=== PATIENT | male | born 1940 | race African-American/Black ===

== ENCOUNTER 2019-09-09 16:10 | Inpatient (IN) | payer MEDICARE ==
--- NOTE | 2019-09-09 18:15 | NUR ---
RECEIVED FROM [facility]. VIA WHEELCHAIR PER VAN DRIVERS. INCREASED AGGRESSION WITH STAFF AND RESIDENTS. PATIENT IS ABLE TO TRANSFER WITH ASSISTANCE. NO KNOWN DRUG ALLERGIES.
[2019-09-09] MEDS ORDERED: PROLIXIN DEC25 MG/ML IM (19:43)
[2019-09-09] MEDS ORDERED: PLAVIX75 MG PO (19:54)
[2019-09-09] MEDS ORDERED: MILK OF MAGNESI30 ML PO (19:54)
[2019-09-09] MEDS ORDERED: VASOTEC10 MG PO (19:55)
[2019-09-09] MEDS ORDERED: ZOCOR40 MG PO (19:56)
[2019-09-09] MEDS ORDERED: SEROQUEL25 MG PO (19:57)
[2019-09-09] MEDS ORDERED: SEROQUEL50 MG PO (19:57)
[2019-09-09] MEDS ORDERED: ELIXOPHYLL80 MG/15 M PO (19:59)
[2019-09-09] MEDS ORDERED: ACETAMINOPHEN500 M1 PO (20:02)
[2019-09-09 20:11] VITALS: BP 103/57
--- NOTE | 2019-09-09 20:30 | NUR ---
NEW ADMIT TO DOCTOR MAYER ON [facility] FROM [facility] FOR INCREASED AGGRESSION. UPON ARRIVAL TO [facility], PATIENT IS CALM AND COOPERATIVE WITH ADMISSION ASSESSMENTS. VERBAL CONSENTS FOR TREATMENT RECEIVED FROM PATIENT. CODE WORD IS KAMILLA. PATIENT IS A FULL CODE. PATIENT ORIENTED TO ROOM, UNIT, AND CALL GARCIA SYSTEM.
[2019-09-09 22:53] VITALS: BP 103/57
[2019-09-10 07:21] LABS: ALBUMIN 3.1 g/dL (3.4-5.0); ANION GAP 13.6 mmol/L (8-16); BILIRUBIN - TOTAL 0.2 mg/dL (0.2-1.3); CALCIUM 8.2 mg/dL (8.5-10.1); CHOL - HDL RATIO 2.9 ratio (2.3-4.9); CREATININE - SERUM 1.3 mg/dL (0.6-1.3); LDL-HDL RATIO 1.7 ratio (1.5-3.5); POTASSIUM - SERUM 4.6 mmol/L (3.5-5.1); PROTEIN - SERUM 6.6 g/dL (6.4-8.2); THYROID STIMULATING HORMONE 3.16 uIU/mL (0.36-3.74)
[2019-09-10 07:24] LABS: BASOPHILS 0.5 % (0-2); EOSINOPHILS 4.7 % (0-7); HEMATOCRIT 39.6 % (42.0-54.0); HEMOGLOBIN 12.3 g/dL (13.5-17.5); IMMATURE GRANULOCYTES 0.3 % (0-5); LYMPHOCYTES 34.4 % (15-50); MCH 26.1 pg (26.0-34.0); MCHC 31.1 g/dL (31.0-37.0); MCV 84.1 fL (80.0-100.0); MONOCYTES 9.3 % (2-11); NEUTROPHILS 50.8 % (40-80); PLATELET COUNT 124 10x3/uL (130-400); RBC 4.71 10x6/uL (4.20-6.10); RDW 14.8 % (11.5-14.5); WBC 6.5 10x3/uL (4.8-10.8)
[2019-09-10 11:03] VITALS: Wt 83.8 kg
--- NOTE | 2019-09-10 13:50 | NUR ---
PATIENT QUIET, CALM, COOPERATIVE, FOLLOWS DIRECTIONS, CONFUSED, NO AGGRESSION NOTED. FEEDS SELF WITHOUT DIFFICULTY. CONT POC DIRECTED.
[2019-09-10 14:54] VITALS: BP 112/58
[2019-09-10 20:12] VITALS: BP 115/62
--- NOTE | 2019-09-10 23:31 | NUR ---
B.) PT IS ALERT AND ORIENTED TO SELF ONLY. HIS SPEECH IN VERY LOW AND PRESSURED. HE IS ABLE TO MAKE HIS NEEDS KNOWN. HE IS CONTINENT AT TIMES. HE IS RECEIVED IN THE DAY ROOM IN A WHEELCHAIR. HE IS PLEASANT WITH STAFF. I.) PROVIDED PM MEDICATIONS. R.) COMPLIANT WITH ALL MEDICATIONS. P.) CONTINUE PLAN OF CARE
[2019-09-11 08:11] LABS: RAPID PLASMA REAGIN Non Reactive (Non Reactive)
[2019-09-11 09:49] VITALS: BP 146/53
--- NOTE | 2019-09-11 13:25 | NUR ---
B) The patient is awake and pleasant, he became sleepy after breakfast and he has not said much. He has not shown any aggression. He is a two person lift. PT came to assess him and the patient was not able to stand at this time. He is in a w/c and needs assist. I) Provide prescribed meds. R) The patient is compliant with meds. P) Continue POC.
--- NOTE | 2019-09-11 15:56 | PSY ---
PATIENT NAME:ALFREDO RIVAS MEDICAL RECORD: [id number] : 38 LOCATION:SRIRAM [facility] ADMISSION DATE: 09/09/19 ACCOUNT: [id number] PSYCHIATRIC EVALUATION DATE OF EVALUATION: 09/10/19 IDENTIFYING DATA: The patient is 78 years old and he is admitted to the hospital on a voluntary basis. CHIEF COMPLAINT: Aggression. HISTORY OF PRESENT ILLNESS: The patient is referred to us by a fci in [place]. He apparently was aggressive with staff and residents there, although I do not have details regarding his exact behaviors. He is clearly very impaired and does have a history of dementia and is not a good historian. He denies that he wants to hurt himself or others as well as psychotic symptoms. He is not providing useful history. PAST MEDICAL HISTORY: Significant for stroke, hypertension, and coronary artery disease. PAST PSYCHIATRIC HISTORY: Significant for an established diagnosis of dementia along with a history of depression and anxiety. He also has some history of suicidal thoughts. FAMILY HISTORY: Unknown. CURRENT MEDICATIONS: Include Prolixin decanoate, milk of magnesia, Plavix, Vasotec, Zocor, Seroquel, and theophylline. SOCIAL HISTORY: The patient is a single by his report. He says he has children, but does not know how many, he says that somewhere between the 3 and 8. All of them had been with different women according to him, but he is not a very good historian. She drinks and says he likes to drink, but is unable to tell me how much. He says he formally smoked cigarettes and he says he has never abused drugs. MENTAL STATUS EXAMINATION: The patient is awake, alert and oriented to person, place and somewhat to time and situation. His mood is anxious. His affect is constricted. Thought processes are circumstantial. Memory, concentration, and abstraction abilities are moderately impaired and he denies any intent to harm himself or others as well as active psychotic symptoms. ASSETS: Supportive family members. LIABILITIES: Limited insight. DIAGNOSTIC IMPRESSION: AXIS I: Major vascular dementia. AXIS II: Deferred. AXIS III: Hypertension, status post stroke, coronary artery disease, hyperlipidemia. AXIS IV: Moderate. AXIS V: Global assessment of functioning is 30. PLAN: At this time, the patient is admitted to the hospital secondary to aggressive behavior at the fci. He will be monitored for clinical changes associated with the medication management and he will be referred back to long-term care. TRANSINT:[id number] Voice Confirmation ID: [id number] DOCUMENT ID: [id number] CHRISTOPHER MAYER MD at 1556 CC: [id number] DICTATION DATE: 09/10/19 1602 SUPERVISOR BUILDING MAINTENANCE: 09/10/19 1623 ADM IN [place] [address] [place] [address]
--- NOTE | 2019-09-11 20:42 | NUR ---
RECEIVED IN PATIENT ROOM. RESTING IN BED WITH EYES OPEN. CALM AND COOPERATIVE WITH CARE AND ASSESSMENT. NO AGGRESSIVE BEHAVIORS. REDIRECT AND REORIENT NEEDED. RESTING IN BED WITH EYES CLOSED AT THIS TIME. CONTINUE PLAN OF CARE.
[2019-09-11 21:58] VITALS: BP 114/49
--- NOTE | 2019-09-12 08:50 | NUR ---
PT SITTING AND EATING BREAKFAST. NO ACUTE DISTRESS NOTED. PT IS CONFUSED ALERT TO SELF ONLY. NO AGGRESSION NOTED FROM PREVIOUS SHIFT. POOR INSIGHT. PT IS COMPLIANT WITH MEDS, VITALS AND ASSESSMENT. PT REQUIRES ASSISTANCE WITH ADLS AND TRANSFERS. CHAIR ALARM IN PLACE AND ACTIVE. WILL CONT PLAN OF CARE.
[2019-09-12 09:33] VITALS: BP 116/96
--- NOTE | 2019-09-12 13:14 | PN ---
PATIENT:ALFREDO RIVAS MEDICAL RECORD: [id number] LOCATION:SRIRAM Gaines ADMISSION DATE: 09/09/19 PROGRESS NOTE DATE OF SERVICE: 09/11/2019 SUBJECTIVE: The patient's case was discussed with staff. He has no new complaint. OBJECTIVE: The patient looks slightly sedated. He does have a history of alcoholism and was somewhat agitated yesterday. I am going to go ahead and stop the Klonopin and the Seroquel today and we will reassess the situation tomorrow. TRANSINT:[id number] Voice Confirmation ID: [id number] DOCUMENT ID: [id number] CHRISTOPHER MAYER MD at 1314 CC: [id number] DICTATION DATE: 09/11/19 180 DYE COLORIST FORMULATOR: 09/11/19 1846 ADM IN [facility] [address] [place] [address]
[2019-09-12 20:00] VITALS: BP 132/54
--- NOTE | 2019-09-12 22:09 | NUR ---
PATIENT HAS A FLAT AFFECT, DOES NOT INTERACT MUCH WITH OTHERS, CONFUSED, COMPLIANT WITH MEDS, NO ADVERSE AFFECT. WILL FOLLOW POC
--- NOTE | 2019-09-13 08:00 | NUR ---
PT IS AWAKE AND ALERT TO PERSON ONLY. PT HAS FLAT AFFECT. CALM AND COOPERATIVE WITH ASSESSMENT. PRESCRIBED MEDS PROVIDED. MED COMPLIANT. PT IS VERY CONFUSED. PT HAS NO INSIGHT INTO HIS SITUATION. REDIRECT AND REORIENT NEEDED. FALL PRECAUTIONS IN PLACE. NO AGGRESSION NOTED. WILL CPOC.
[2019-09-13 11:03] VITALS: BP 128/60
--- NOTE | 2019-09-13 11:08 | PN ---
PATIENT:ALFREDO RIVAS MEDICAL RECORD: [id number] LOCATION:SRIRAM Gaines ADMISSION DATE: 09/09/19 PROGRESS NOTE DATE OF SERVICE: 09/12/2019 SUBJECTIVE: The patient's case was discussed with staff. He has no new complaint. OBJECTIVE: The patient is awake and interactive. He has not been disruptive in any significant way. ASSESSMENT: Vascular dementia. PLAN: The patient is going to be started on Aricept at a dose of 5 mg at bedtime. His long-term prognosis is guarded. I anticipate that he may need additional medications, particularly a mood stabilizer, but at this point, he has not shown the aggressive behavior that precipitated this admission. TRANSINT:[id number] Voice Confirmation ID: [id number] DOCUMENT ID: [id number] CHRISTOPHER MAYER MD at 1108 CC: [id number] DICTATION DATE: 09/12/19 1355 HAND REAMER: 09/12/19 1532 ADM IN [place] [id number] [place] [address]
[2019-09-13 18:59] VITALS: BP 159/65
--- NOTE | 2019-09-13 21:57 | NUR ---
RECEIVED IN DAYROOM. SITTING IN A RECLINING CHAIR. CALM AND COOPERATIVE WITH CARE AND ASSESSMENT. NO SIGNS OF AGGRESSION. REDIRECT AND REORIENT NEEDED. RESTING IN BED WITH EYES CLOSED AT THIS TIME. CONTINUE PLAN OF CARE
--- NOTE | 2019-09-14 08:00 | NUR ---
PT IN DINING ROOM AWAITING ON BREAKFAST. PT IS AWAKE AND ALERT TO PERSON ONLY. CALM AND COOPERATIVE WITH ASSESSMENT. PRESCRIBED MEDS PROVIDED. MED COMPLIANT. NO BEHAVIORS NOTED AT THIS TIME. REDIRECT AND REORIENT NEEDED. FALL PRECAUTIONS IN PLACE. WILL CPOC.
[2019-09-14 09:13] VITALS: BP 153/51
[2019-09-14 11:01] LABS: ANION GAP 11.9 mmol/L (8-16); CALCIUM 8.9 mg/dL (8.5-10.1); CARBON DIOXIDE 27.6 mmol/L (21.0-32.0); CREATININE - SERUM 1.1 mg/dL (0.6-1.3); POTASSIUM - SERUM 4.5 mmol/L (3.5-5.1)
--- NOTE | 2019-09-14 15:18 | NUR ---
Nutrition Follow-up: Diet: Regular PO intake: ~85% average x last 9 meals Last BM = 09/12/19. Wt: 186# (09/13/19); Admit wt: 185# (09/09/19) Labs, meds, and nursing skin assessment reviewed Continue current nutrition regimen. RD Following.
--- NOTE | 2019-09-14 15:38 | PN ---
PATIENT:ALFREDO RIVAS MEDICAL RECORD: [id number] LOCATION:SRIRAM Gaines ADMISSION DATE: 09/09/19 PROGRESS NOTE DATE OF SERVICE: 09/13/2019 SUBJECTIVE: The patient's case was discussed with staff. He has no new complaint. OBJECTIVE: The patient is participating in treatment reasonably well. I started him on a low dose of Aricept and he has tolerated the initial dose of this well. He has not been aggressive here as he was at the [place] [facility], but I do not think that is related to a change in his condition, but rather to the fact that he is in a small highly structured environment where staff are always with him. They are constantly redirecting him and assisting him. ASSESSMENT: Dementia. PLAN: Current medicines and therapies have been reviewed and will be maintained. Long-term prognosis is guarded. TRANSINT:[id number] Voice Confirmation ID: [id number] DOCUMENT ID: [id number] CHRISTOPHER MAYER MD at 1538 CC: [id number] DICTATION DATE: 09/13/19 1137 INFORMATICS MANAGER: 09/13/19 1220 ADM IN [facility] [address] [place] [address]
[2019-09-14 20:00] VITALS: BP 158/53
--- NOTE | 2019-09-14 21:34 | NUR ---
RECEIVED IN DAYROOM. SITTING AT THE TABLE IN A RECLINING CHAIR. CALM AND COOPERATIVE WITH CARE AND ASSESSMENT. NO SIGNS OF AGGRESSION. REDIRECT AND REORIENT NEEDED. RESTING IN BED WITH EYES CLOSED. CONTINUE PLAN OF CARE
[2019-09-15 05:42] LABS: APPEARANCE CLEAR (CLEAR); BILIRUBIN NEGATIVE (NEGATIVE); COLOR YELLOW (YELLOW); GLUCOSE NEGATIVE (NEGATIVE); KETONE NEGATIVE (NEGATIVE); NITRITE NEGATIVE (NEGATIVE); PROTEIN NEGATIVE (NEGATIVE); SPECIFIC GRAVITY 1.015 (1.005-1.020); UROBILINOGEN NORMAL (NORMAL)
[2019-09-15 05:43] LABS: BACTERIA FEW /hpf (NEGATIVE); EPITHELIAL CELLS 0-5 /hpf (0-5); WHITE CELLS - URINE 0-5 /hpf (NEGATIVE)
--- NOTE | 2019-09-15 08:00 | NUR ---
REC'D PT SITING IN W/C BY NURSES STATION. CALM AND COOPERATIVE WITH ASSESSMENT. MED COMPLIANT. NO BEHAVIORS NOTED AT THIS TIME. PRESCRIBED MEDS PROVIDED ORDERED. MED COMPLIANT. REDIRECT AND REORIENT NEEDED. FALL PRECAUTIONS IN PLACE. WILL CPOC.
[2019-09-15 08:58] VITALS: BP 148/60
--- NOTE | 2019-09-15 15:36 | PN ---
PATIENT:ALFREDO RIVAS MEDICAL RECORD: [id number] LOCATION:SRIRAM Gaines ADMISSION DATE: 09/09/19 PROGRESS NOTE DATE OF SERVICE: 09/14/2019 SUBJECTIVE: The patient's case was discussed with staff. He has no new complaint. OBJECTIVE: The patient is sleeping and eating reasonably well. He has not been aggressive. ASSESSMENT: Vascular dementia. PLAN: Supportive and educational interventions were made. Long-term prognosis is guarded. TRANSINT:[id number] Voice Confirmation ID: [id number] DOCUMENT ID: [id number] CHRISTOPHER MAYER MD at 1536 CC: [id number] DICTATION DATE: 09/14/19 1633 WELL FLOW OPERATOR: 09/14/19 1637 ADM IN [place] [address] [place] [address]
[2019-09-15 22:08] VITALS: BP 142/63
--- NOTE | 2019-09-15 23:24 | NUR ---
RECEIVED IN BEDROOM. RESTING IN BED WITH EYES CLOSED. CALM AND COOPERATIVE WITH CARE AND ASSESSMENT. NO SIGNS OF AGGRESSION. REDIRECT AND REORIENT NEEDED. RESTING IN BED WITH EYES CLOSED AT THIS TIME. CONTINUE PLAN OF CARE
[2019-09-16 08:48] VITALS: BP 133/50
--- NOTE | 2019-09-16 10:00 | NUR ---
PATIENT SITTING IN WHEELCHAIR. CALM AND COOPERATIVE WITH ASSESSMENT AND CARE. NO AGGRESSION NOTED. REDIRECT AND REORIENT NEEDED. WILL CONTINUE POC.
--- NOTE | 2019-09-16 12:43 | PN ---
PATIENT:ALFREDO RIVAS MEDICAL RECORD: [id number] LOCATION:SRIRAM Gaines ADMISSION DATE: 09/09/19 PROGRESS NOTE DATE OF SERVICE: 09/15/2019 SUBJECTIVE: The patient's case was discussed with staff. He has no new complaint. OBJECTIVE: The patient is eating and drinking well. He has not been seriously disruptive in any significant way since being admitted. He has almost no insight about his situation. I do not think the underlying condition that precipitated the admission has really changed. It is just that he is much more highly structured and supervised environment. ASSESSMENT: Dementia. PLAN: I am going to start the patient on Zoloft to assist with his depressed mood. He will be monitored for clinical changes associated with its use. TRANSINT:[id number] Voice Confirmation ID: [id number] DOCUMENT ID: [id number] CHRISTOPHER MAYER MD at 1243 CC: [id number] DICTATION DATE: 09/15/19 1548 SENIOR QUALITY ENGINEER: 09/15/19 1743 ADM IN [place] [address] [place] [id number]
--- NOTE | 2019-09-16 20:41 | NUR ---
PATIENT VERY CONFUSED, FLAT AFFECT, RELIES ON STAFF FOR ALL ADL'S. COMPLIANT WITH MEDS, NO ADVERSE REACATION NOTED. WILL FOLLOW POC
[2019-09-16 22:00] VITALS: BP 106/61
[2019-09-17 09:02] VITALS: BP 151/56
--- NOTE | 2019-09-17 10:26 | NUR ---
NUTRITION F/U PUREED DIET WITH THIN LIQUIDS. REQUIRES FEEDING ASSIST. 100% INTAKE RECENT MEALS, STABLE WT. RECENT BM RECORDED. RD FOLLOWING
--- NOTE | 2019-09-17 12:29 | NUR ---
The patient is awake and he is more alert, he is walking with PT today and he is eating a little, but he does not like the pureed diet. He is calm and has not shown any aggression today. He can self propel in his w/c, but he takes some time. I) Provide prescribed meds. Encourage groups and activities. R) The patient is compliant with meds and he does try to interact with staff with prompting. P) Continue POC.
--- NOTE | 2019-09-17 14:26 | PN ---
PATIENT:ALFREDO RIVAS MEDICAL RECORD: [id number] LOCATION:SRIRAM Gaines ADMISSION DATE: 09/09/19 PROGRESS NOTE DATE OF SERVICE: 09/16/2019 SUBJECTIVE: The patient's case was discussed with staff. He has no new complaint. OBJECTIVE: The patient denies intent to harm himself or others. He is severely impaired cognitively. He has not been aggressive today. ASSESSMENT: Vascular dementia. PLAN: Current medicines have been reviewed and will be maintained. Long-term prognosis is guarded. TRANSINT:[id number] Voice Confirmation ID: [id number] DOCUMENT ID: [id number] CHRISTOPHER MAYER MD at 1426 CC: [id number] DICTATION DATE: 09/16/19 162 MEDIA MARKETING COORDINATOR: 09/16/19 2143 ADM IN [facility] [address] [place] [address]
[2019-09-17 21:32] VITALS: BP 132/62
[2019-09-18 09:47] VITALS: BP 175/70
--- NOTE | 2019-09-18 10:05 | NUR ---
B) The patient is awake and alert, he has poor insight into his situation he has not shown any aggression today. He did a swallow evaluation this am and he is pleasant. He is sitting in a w/c and he can self propel, he can tyransfer and ambulate with assist. I) Provide prescribed meds. R) The patient is compliant with meds and unit milieu. P) Continue POC.
--- NOTE | 2019-09-18 14:37 | PN ---
PATIENT:ALFREDO RIVAS MEDICAL RECORD: [id number] LOCATION:SRIRAM Gaines ADMISSION DATE: 09/09/19 PROGRESS NOTE DATE OF SERVICE: 09/17/2019 SUBJECTIVE: The patient's case was discussed with staff. He has no new complaint. OBJECTIVE: The patient is in good behavioral control with limited insight about his condition. He tolerates his medicines well. ASSESSMENT: Vascular dementia. PLAN: Supportive and educational interventions were made. Long-term prognosis is guarded. TRANSINT:[id number] Voice Confirmation ID: [id number] DOCUMENT ID: [id number] CHRISTOPHER MAYER MD at 1437 CC: [id number] DICTATION DATE: 09/17/19 1537 STRADDLE BUG DRIVER: 09/17/19 1756 ADM IN [place] [id number] [place] [id number]
--- NOTE | 2019-09-18 17:46 | NUR ---
PT IS ON PUREED DIET AND THIN LIQUIDS. PT AT TIMES DOES COUGH WHEN EATING. NO DISTRESS NOTED.
--- NOTE | 2019-09-18 21:23 | NUR ---
B.) PT IS ALERT AND ORIENTED TO SELF ONLY. HE IS VERY SOFT SPOKEN AND IS OFTEN QUIET. HE IS RECEIVED IN HIS WHEELCHAIR AND IS PLEASANT WITH STAFF. I.) PROVIDE PM MEDICATIONS. REDIRECT NEEDED. R.) COMPLIANT WITH ALL MEDICATIONS. EASY TO REDIRECT. P.) CONTINUE PLAN OF CARE
[2019-09-19 02:34] VITALS: BP 150/57
[2019-09-19 09:03] VITALS: BP 141/57
--- NOTE | 2019-09-19 12:38 | PN ---
PATIENT:ALFREDO RIVAS MEDICAL RECORD: [id number] LOCATION:SRIRAM Gaines ADMISSION DATE: 09/09/19 PROGRESS NOTE DATE OF SERVICE: 09/18/2019 SUBJECTIVE: The patient's case was discussed with staff. He has no new complaint. OBJECTIVE: The patient is partially oriented, but severely impaired cognitively. He has almost no short term memory. He has a depressed mood, but denies being depressed and also denies wanting to hurt himself. ASSESSMENT: Dementia. PLAN: The patient will be maintained on current medicines with the exception of the Zoloft, which I am going to increase to 50 mg daily. I anticipate that he can reasonably be transitioned out of the hospital soon if this level of improvement continues. TRANSINT:[id number] Voice Confirmation ID: [id number] DOCUMENT ID: [id number] CHRISTOPHER MAYER MD at 1238 CC: [id number] DICTATION DATE: 09/18/19 1525 DROP HAMMER PILE DRIVER OPERATOR: 09/18/19 1623 ADM IN [place] [address] [place] [address]
--- NOTE | 2019-09-19 13:13 | NUR ---
The patient is awake and alert, he is pleasant, he is quiet. He is calm, he has not shown any aggression today. He sits in his w/c. Provide prescribed meds. The patient is compliant with meds. Continue POC.
[2019-09-19 20:10] VITALS: BP 121/57
--- NOTE | 2019-09-19 22:03 | NUR ---
B.) PT IS ALERT AND ORIENTED TO SELF ONLY. HE HAS POOR INSIGHT INTO HIS SITUATION. HE IS QUIET AND WITHDRAWN. HE KEPT HIS HANDS OVER HIS EARS IN THE DAYROOM TONITE. I.) PROVIDED PM MEDICATIONS. REDIRECT NEEDED R.) COMPLIANT WITH ALL MEDICATIONS. EASY TO REDIRECT AT TIMES. P.) WILL CONTINUE TO MONITOR.
[2019-09-20 08:00] VITALS: BP 159/54
--- NOTE | 2019-09-20 10:00 | NUR ---
RECEIVED PT IN DINING ROOM FOR B'FAST, ALERT, CALM, COOPERATIVE. NO BEHAVIORAL ISSUES NOTED. MEDS ADMIN PER ORDERS WITH COMPLETE MED COMPLIANCE NOTED. CONT POC DIRECTED.
--- NOTE | 2019-09-20 11:48 | PN ---
PATIENT:ALFREDO RIVAS MEDICAL RECORD: [id number] LOCATION:SRIRAM Gaines ADMISSION DATE: 09/09/19 PROGRESS NOTE DATE OF SERVICE: 09/19/2019 SUBJECTIVE: The patient's case was discussed with staff. He has no new complaint. OBJECTIVE: The patient is in good behavioral control with poor insight about his condition. He has not been aggressive in any significant way. His confusion is relatively unchanged. ASSESSMENT: Vascular dementia. PLAN: I anticipate the patient can be transitioned out of the hospital soon if this level of improvement continues. TRANSINT:[id number] Voice Confirmation ID: [id number] DOCUMENT ID: [id number] CHRISTOPHER MAYER MD at 1148 CC: [id number] DICTATION DATE: 09/19/19 1339 ENTRY PROCESSOR: 09/19/19 1429 ADM IN [place] [id number] [place] [address]
[2019-09-20 20:00] VITALS: BP 113/65
--- NOTE | 2019-09-21 01:34 | NUR ---
B.) PT IS ALERT AND ORIENTED TO SELF ONLY. HE IS VERY SOFT SPOKEN. HE IS WITHDRAWN FROM PEERS. I.) REORIENT NEEDED. PROVIDED PM MEDICATIONS. ASSIST WITH ADL'S. R.) EASY TO REORIENT. COMPLIANT WITH ALL MEDICATIONS. TOLERATED ADL'S WELL. P.) WILL CONTINUE TO MONITOR.
[2019-09-21 10:47] VITALS: BP 111/51
--- NOTE | 2019-09-21 17:47 | NUR ---
PATIENT ALERT, CALM, CONFUSED, COOPERATIVE. NO AGGRESSION. ASSISTS WITH TRANSFERS, FEEDS SELF AFTER SETUP. MEDS ADMIN PER ORDERS WITH COMPLETE MED COMPLIANCE NOTED. CONT POC DIRECTED.
[2019-09-21] MEDS ORDERED: DONEPEZIL HCL5 MG PO (20:53)
[2019-09-21] MEDS ORDERED: ZOLOFT50 MG PO (20:54)
[2019-09-21] MEDS ORDERED: VITAMIN D5000 UNIT PO (20:54)
[2019-09-21] MEDS ORDERED: FOLIC ACID1 MG PO (20:54)
[2019-09-22 00:03] VITALS: BP 110/60
[2019-09-22 08:24] VITALS: BP 170/61
--- NOTE | 2019-09-22 13:31 | NUR ---
PT IS AWAKE, ALERT, AND COOPERATIVE. ASSESSMENT COMPLETED. MED COMPLIANT. FEEDS SELF AFTER SETUP. NO AGGRESSION NOTED. WILL CPOC.
--- NOTE | 2019-09-22 15:36 | PN ---
PATIENT:ALFREDO RIVAS MEDICAL RECORD: [id number] LOCATION:SRIRAM Gaines ADMISSION DATE: 09/09/19 PROGRESS NOTE DATE OF SERVICE: 09/21/2019 SUBJECTIVE: The patient's case was discussed with staff. He has no new complaint. OBJECTIVE: The patient is in good behavioral control. He has very poor insight about his situation and he has not been aggressive. ASSESSMENT: Vascular dementia. PLAN: The patient will be transitioned out of the hospital tomorrow. His long-term prognosis is guarded. TRANSINT:[id number] Voice Confirmation ID: [id number] DOCUMENT ID: [id number] CHRISTOPHER MAYER MD at 1536 CC: [id number] DICTATION DATE: 09/21/192051 SLAT TWISTER: 09/21/192104 ADM IN [facility] [address] [place] [address]
--- NOTE | 2019-09-23 13:45 | PN ---
PATIENT:ALFREDO RIVAS MEDICAL RECORD: [id number] LOCATION:SRIRAM Gaines ADMISSION DATE: 09/09/19 PROGRESS NOTE DATE OF SERVICE: 09/22/2019 SUBJECTIVE: The patient's case was discussed with staff. He has no new complaint. OBJECTIVE: The patient is confused, but in good behavioral control. ASSESSMENT: Vascular dementia. PLAN: The patient will be transitioned out of the hospital today. His long-term prognosis is guarded. TRANSINT:[id number] Voice Confirmation ID: [id number] DOCUMENT ID: [id number] CHRISTOPHER MAYER MD at 1345 CC: [id number] DICTATION DATE: 09/22/191928 SAUSAGE CANNER: 09/22/192124 DIS IN 09/22/19 [place] [address] [place] [address]
--- NOTE | 2019-10-03 12:38 | DS ---
PATIENT:ALFREDO RIVAS :38 MEDICAL RECORD: [id number] DISCHARGE SUMMARY ADMISSION DATE: 09/09/19 DISCHARGE DATE: 09/22/19 IDENTIFYING DATA: The patient is 78 years old and he was admitted to the hospital on a voluntary basis because of aggression. The patient lives in a local long term and he was aggressive with residents there. He was agitated and had to be restrained. HOSPITAL COURSE: The patient was admitted to the hospital and was clearly suffering from dementia. He was treated with both mood stabilizing and memory enhancing medications and showed improvement in his behavior. He was subsequently transferred back to the long term. DISCHARGE DIAGNOSES: AXIS I: Major vascular neurocognitive disorder. AXIS II: None. AXIS III: Hypertension, status post stroke, coronary artery disease, hyperlipidemia. AXIS IV: Moderate. AXIS V: Global assessment of functioning is 35. PLAN: At the time of discharge, the patient was in good behavioral control and had no evidence of acute or direct dangerousness to himself or others. Followup is to be with his primary care long term physician. TRANSINT:[id number] Voice Confirmation ID: [id number] DOCUMENT ID: [id number] CHRISTOPHER MAYER MD at 1238 CC: [id number] DICTATION DATE: 10/02/19 1609 LEAF TINNER: 10/03/19 0620 DIS IN 09/22/19 [facility] [address] [place] [address]
== END 2019-09-22 18:45 | DRG 57 ==
LOC: D.PSYCH 16:10
PROVIDERS: Family Medicine; ADMIT Psychiatry & Neurology Psychiatry; ATTEND Psychiatry & Neurology Psychiatry
DX: I69.319 Unspecified symptoms and signs involving cognitive functions following cerebral infarction (principal); F01.51 Vascular dementia, unspecified severity, with behavioral disturbance; I10 Essential (primary) hypertension; I25.10 Atherosclerotic heart disease of native coronary artery without angina pectoris; F32.9 Major depressive disorder, single episode, unspecified; D52.0 Dietary folate deficiency anemia; H40.9 Unspecified glaucoma; K59.01 Slow transit constipation; E55.9 Vitamin D deficiency, unspecified; R13.10 Dysphagia, unspecified